=== PATIENT | female | born 1935 | race Caucasian/White ===

== ENCOUNTER 2019-09-06 07:59 | Inpatient (IN) ==
[2019-09-06] MEDS ORDERED: FUROSEMIDE 40 MG/4 ML VIAL IV STA (08:20)
[2019-09-06 08:41] LABS: Basophils # 0.1 10*3/uL (0.0-0.2); Basophils % 1.1 % (0.0-0.8); Eosinophils # 0.1 10*3/uL (0.0-0.87); Eosinophils % 0.4 % (0.00-10.9); Hematocrit 26.7 VOL% (35.7-47.0); Hemoglobin 8.4 GM/DL (12.0-16.0); Immature Granulocytes % 1.9 %; Immature Granulocytes Absolute 0.23 #; Lymphocytes # 1.1 10*3/uL (1.4-4.0); Lymphocytes % 8.6 % (21.3-54.2); Mean Corpuscular HGB Conc 31.5 GM/DL (32-36); Mean Platelet Volume 10.2 FL (9.6-12.0); Monocytes % 11.4 % (1.7-12.7); Neutrophils % 76.6 % (38.7-73.9); Platelet Count 324 T/CUMM (130-400); Red Blood Count 2.87 MC/CUMM (3.8-5.5); Red Cell Distribution Width 13.2 % (9.3-17.3); White Blood Count 12.3 T/CUMM (4-12)
[2019-09-06 09:04] LABS: INR 1.2; PT Patient Result 12.3 SECS (9.8-11.9); Partial Thromboplastin Time 22.8 SECS (23.9-33.8)
[2019-09-06 09:05] LABS: Albumin 2.9 G/DL (3.4-5.0); Bilirubin,Total 0.5 MG/DL (0.2-1.0); Calcium 8.8 MG/DL (8.5-10.1); Osmolality,Calculated 274.4 MOS/KG (273-304); Total Protein 7.1 G/DL (6.4-8.3)
[2019-09-06 09:17] LABS: Free T4 (Free Thyroxine) 1.18 NG/DL (0.76-1.46); Thyroid Stimulating Hormone 6.76 uIU/ml (0.358-3.74)
[2019-09-06] MEDS ORDERED: ENOXAPARIN 60 MG/0.6 ML SYRINGE SUBCUT STA (09:24)
[2019-09-06 09:57] LABS: % Iron Saturation 12.1 % (18-50)
[2019-09-06 10:05] LABS: Folate > 24.0 NG/ML (5.4-24.0); Vitamin B12 1187 PG/ML (211-911)
[2019-09-06] MEDS ORDERED: DEXTROSE 50% 25 GM/50 ML VIAL IV PRN (10:09)
[2019-09-06] MEDS ORDERED: PROMETHAZINE 25 MG TABLET PO PRN (10:09)
[2019-09-06] MEDS ORDERED: GLUCAGON 1 MG VIAL IM PRN (10:09)
[2019-09-06] MEDS ORDERED: ACETAMINOPHEN 325 MG TABLET PO PRN (10:09)
[2019-09-06] MEDS ORDERED: guaiFENesin/DM ER 600-30 MG TABLET PO PRN (10:09)
[2019-09-06] MEDS ORDERED: diphenhydrAMINE CAP 25 MG CAPSULE PO PRN (10:09)
[2019-09-06] MEDS ORDERED: ZALEPLON 5 MG CAPSULE PO PRN (10:09)
[2019-09-06] MEDS ORDERED: hydrALAZINE 20 MG/1 ML VIAL IV PRN (10:09)
[2019-09-06] MEDS ORDERED: NICOTINE 21 MG/24 HR PATCH TRANSDERM PRN (10:09)
[2019-09-06] MEDS ORDERED: ONDANSETRON 4 MG/2 ML VIAL IV PRN (10:09)
[2019-09-06 10:17] LABS: Apearance,Urine Clear (Clear); Urine Color Yellow (Yellow)
[2019-09-06 10:18] LABS: Bilirubin,Urine Negative (Negative); Blood, Urine Negative (Negative); Glucose,Urine (UA) Negative (Negative); Ketones,Urine Negative (Negative); Nitrite,Urine Negative (Negative); Protein,Urine Negative; Squamous Epithelial Cell,Urine Few /HPF (0-10); Urine Specific Gravity 1.015 (1.001-1.035); Urine Urobilinogen < 2.0 EU/DL (0.2-1.0)
[2019-09-06 10:19] LABS: Mucus,Urine Trace /LPF (Occasional)
[2019-09-06] MEDS ORDERED: AZITHROMYCIN INJ 500 MG in SODIUM CHLORIDE 0.9% 250 ML IV SCH (10:30)
[2019-09-06] MEDS: cefTRIAXone 1,000 MG in SYRINGE 1 EACH IV SCH (10:55)
[2019-09-06] MEDS ORDERED: ALBUTEROL INHALER 18 GM INH PRN (11:07)
[2019-09-06] MEDS: AZITHROMYCIN 250 MG TABLET PO SCH (12:56)
[2019-09-06] MEDS: ALBUTEROL INHALER 18 GM INH SCH ×3 (13:21→21:01)
[2019-09-06] MEDS: FUROSEMIDE 40 MG/4 ML VIAL IV SCH (17:31)
[2019-09-06] MEDS: DOCUSATE SODIUM 100 MG CAPSULE PO SCH (21:01)
[2019-09-06] MEDS: GABAPENTIN 400 MG CAPSULE PO SCH (21:01)
[2019-09-07] MEDS: ALBUTEROL INHALER 18 GM INH SCH ×6 (00:25→20:03)
[2019-09-07 06:30] LABS: Basophils # 0.1 10*3/uL (0.0-0.2); Basophils % 1.4 % (0.0-0.8); Eosinophils # 0.5 10*3/uL (0.0-0.87); Eosinophils % 5.1 % (0.00-10.9); Hemoglobin 8.3 GM/DL (12.0-16.0); Immature Granulocytes % 0.8 %; Immature Granulocytes Absolute 0.07 #; Lymphocytes # 1.6 10*3/uL (1.4-4.0); Lymphocytes % 17.8 % (21.3-54.2); Mean Corpuscular HGB Conc 31.9 GM/DL (32-36); Monocytes % 11.4 % (1.7-12.7); Neutrophils % 63.5 % (38.7-73.9); Platelet Count 349 T/CUMM (130-400); Red Blood Count 2.89 MC/CUMM (3.8-5.5); Red Cell Distribution Width 13.1 % (9.3-17.3)
[2019-09-07 07:06] LABS: Calcium 8.2 MG/DL (8.5-10.1); Osmolality,Calculated 273.1 MOS/KG (273-304)
[2019-09-07] MEDS: cefTRIAXone 1,000 MG in SYRINGE 1 EACH IV SCH (08:29)
[2019-09-07] MEDS: GABAPENTIN 400 MG CAPSULE PO SCH ×2 (08:30→20:03)
[2019-09-07] MEDS: CHOLECALCIFEROL 400 UNIT TABLET PO SCH (08:30)
[2019-09-07] MEDS: AZITHROMYCIN 250 MG TABLET PO SCH (08:30)
[2019-09-07] MEDS: FUROSEMIDE 40 MG/4 ML VIAL IV SCH ×2 (08:30→16:21)
[2019-09-07] MEDS: CALCIUM (CARBONATE) 600 MG TABLET PO SCH (08:31)
[2019-09-07] MEDS: ASPIRIN EC 81 MG TABLET PO SCH (08:31)
[2019-09-07] MEDS: ENOXAPARIN 30 MG/0.3 ML SYRINGE SUBCUT SCH (08:31)
[2019-09-07] MEDS: DOCUSATE SODIUM 100 MG CAPSULE PO SCH ×2 (08:31→20:03)
[2019-09-07] MEDS ORDERED: PANTOPRAZOLE 40 MG TABLET PO SCH (09:00)
[2019-09-07] MEDS ORDERED: POTASSIUM CHLORIDE 20 MEQ/15 ML UDCUP PO ONE (12:00)
[2019-09-07] MEDS: ASCORBIC ACID 500 MG TABLET PO SCH (20:03)
[2019-09-07] MEDS: SODIUM CHLOR 0.9% KCL 40 MEQ 40 MEQ/1,000 ML BAG IV SCH (22:14)
[2019-09-08] MEDS: ALBUTEROL INHALER 18 GM INH SCH ×6 (00:11→21:10)
[2019-09-08] MEDS: SODIUM CHLOR 0.9% KCL 40 MEQ 40 MEQ/1,000 ML BAG IV SCH (05:36)
[2019-09-08] MEDS: ASCORBIC ACID 500 MG TABLET PO SCH ×2 (08:14→21:10)
[2019-09-08] MEDS: AZITHROMYCIN 250 MG TABLET PO SCH (08:14)
[2019-09-08] MEDS: CHOLECALCIFEROL 400 UNIT TABLET PO SCH (08:14)
[2019-09-08] MEDS: DOCUSATE SODIUM 100 MG CAPSULE PO SCH ×2 (08:15→21:09)
[2019-09-08] MEDS: ASPIRIN EC 81 MG TABLET PO SCH (08:15)
[2019-09-08] MEDS: FUROSEMIDE 40 MG/4 ML VIAL IV SCH ×2 (08:15→16:26)
[2019-09-08] MEDS: CALCIUM (CARBONATE) 600 MG TABLET PO SCH (08:15)
[2019-09-08] MEDS: ENOXAPARIN 30 MG/0.3 ML SYRINGE SUBCUT SCH (08:15)
[2019-09-08] MEDS: GABAPENTIN 400 MG CAPSULE PO SCH ×2 (08:15→21:10)
[2019-09-08] MEDS: cefTRIAXone 1,000 MG in SYRINGE 1 EACH IV SCH (08:17)
[2019-09-09] MEDS: ALBUTEROL INHALER 18 GM INH SCH ×5 (01:33→17:01)
[2019-09-09 05:46] LABS: Calcium 8.7 MG/DL (8.5-10.1); Osmolality,Calculated 272.8 MOS/KG (273-304)
[2019-09-09] MEDS: FUROSEMIDE 40 MG/4 ML VIAL IV SCH ×2 (09:22→17:00)
[2019-09-09] MEDS: cefTRIAXone 1,000 MG in SYRINGE 1 EACH IV SCH (09:22)
[2019-09-09] MEDS: CHOLECALCIFEROL 400 UNIT TABLET PO SCH (09:22)
[2019-09-09] MEDS: DOCUSATE SODIUM 100 MG CAPSULE PO SCH (09:22)
[2019-09-09] MEDS: GABAPENTIN 400 MG CAPSULE PO SCH (09:22)
[2019-09-09] MEDS: ENOXAPARIN 30 MG/0.3 ML SYRINGE SUBCUT SCH (09:22)
[2019-09-09] MEDS: AZITHROMYCIN 250 MG TABLET PO SCH (09:23)
[2019-09-09] MEDS: CALCIUM (CARBONATE) 600 MG TABLET PO SCH (09:23)
[2019-09-09] MEDS: ASCORBIC ACID 500 MG TABLET PO SCH (09:23)
[2019-09-09] MEDS: ASPIRIN EC 81 MG TABLET PO SCH (09:23)
[2019-09-09] MEDS ORDERED: POTASSIUM CHLORIDE 20 MEQ/15 ML UDCUP PO ONE (09:50)
[2019-09-09 16:24] VITALS: BP 129/55
== END 2019-09-09 18:14 | disposition home or self-care (01) | DRG 291 ==
LOC: N.ED 07:59 → N.EDINP 10:09 → SUATTDRO 10:09 → N.2E 10:37
PROVIDERS: ADMIT Internal Medicine; ATTEND Internal Medicine